=== PATIENT | female | born 1995 | race Caucasian/White ===

== ENCOUNTER 2017-07-15 10:24 | Emergency (ER) | payer BC ==
[~2017-07-15] VITALS: Ht 157.5 cm; Wt 70.4 kg
[2017-07-15 12:34] VITALS: BP 123/79
== END 2017-07-15 12:34 | disposition home or self-care (01) ==
LOC: ED 10:24
DX: S16.1XXA Strain of muscle, fascia and tendon at neck level, initial encounter (principal); V43.92XA Unspecified car occupant injured in collision with other type car in traffic accident, initial encounter; Y93.19 Activity, other involving water and watercraft; Y92.488 Other paved roadways as the place of occurrence of the external cause; Y99.8 Other external cause status; S39.012A Strain of muscle, fascia and tendon of lower back, initial encounter
CPT/HCPCS: J1885